=== PATIENT | male | born 1985 | race Caucasian/White ===

== ENCOUNTER → 2018-11-05 | Outpatient (CLI) | payer OTHER ==
[~2018-11-05] MED LIST: DIPH-1 PO; LOR5/325 PO; ONDA4TAB PO; ONDA4TAB97 PO
--- NOTE | 2018-11-05 15:01 | RADIOLOGY IMAGING REPORT ---
FACILITY: [facility] PATIENT NAME: Sultan Watts : 1985 MR: [id number] V: [id number] EXAM DATE: ORDERING PHYSICIAN: GAGANDEEP NG TECHNOLOGIST: Location: [facility] Patient: Sultan Mac : 1985 Visit/Account:[id number] Date of Sevice: 11/05/2018 KNEE 3 VIEW RIGHT History: Right knee swelling with pain. Comparison study: None. Findings: There is a prominent joint effusion involving the right knee, but there is no fracture. Large joint effusion without fracture raises the possibility of a ligamentous or meniscal injury. MR I scan may be helpful for further evaluation. IMPRESSION: 1. Large right sided knee joint effusion without an associated fracture. A large effusion without a fracture raises the possibility of a ligamentous or meniscal injury. Report Dictated By: John Means MD at 11/05/2018 2:55 PM Report E-Signed By: John Means MD at 11/05/2018 2:57 PM WSN:[id number]
== END ==
LOC: LAB 13:50
PROVIDERS: ATTEND Family Medicine
DX: M25.461 Effusion, right knee (principal); R30.0 Dysuria
CPT/HCPCS: 81001; 87088

== ENCOUNTER → 2018-12-02 | Outpatient (CLI) | payer OTHER ==
--- NOTE | 2018-12-02 14:54 | RADIOLOGY IMAGING REPORT ---
FACILITY: [facility] PATIENT NAME: Sultan Watts : 1985 MR: [id number] V: [id number] EXAM DATE: ORDERING PHYSICIAN: GAGANDEEP NG TECHNOLOGIST: Location: [facility] Patient: Sultan Mac : 1985 Visit/Account:[id number] Date of Sevice: 12/02/2018 MR KNEE RT W/O CONTRAST DATE: 12/02/2018 1:00 PM TECHNIQUE: Multisequence, multiplanar MR imaging was performed of the knee without intravenous contra st INDICATION: Pain and swelling. Fall. COMPARISON: Knee radiographs November 17, 2018 FINDINGS: MENISCI: The menisci are intact. CRUCIATES AND COLLATERALS: The ACL and PCL are intact. Normal MCL and lateral collateral ligament com plex. ARTICULAR CARTILAGE AND OSSEOUS STRUCTURES: No fracture or marrow replacing lesion. Medial Compartment: No focal cartilage defect. Lateral Compartment: No focal cartilage defect. Patellofemoral Compartment: No focal cartilage defect. EXTENSOR MECHANISM: The quadriceps and patellar tendons are intact as are the patellar retinacula. MISCELLANEOUS: No effusion. Small Liu's cyst. IMPRESSION: 1. No evidence of internal derangement of the knee. 2. Small Liu's cyst. Report Dictated By: Patsy Saldaña MD at 12/02/2018 2:21 PM Report E-Signed By: Patsy Saldaña MD at 12/02/2018 2:49 PM WSN:[id number]
== END ==
LOC: MRI 00:15
PROVIDERS: ATTEND Family Medicine
DX: M71.21 Synovial cyst of popliteal space [Baker], right knee (principal)